=== PATIENT | male | born 1975 | race African-American/Black ===

== ENCOUNTER 2019-02-17 10:17 | Inpatient (IN) | payer SELFPAY ==
[~2019-02-17] VITALS: Ht 188 cm; Wt 96.6 kg
--- NOTE | 2019-02-17 10:33 | NUR ---
ED Nurse Note: Pt ambulated to ED from home. Pt A&Ox4, VSS. C/o right-sided flank pain 8/10 for 3 weeks and boils in the groin area. Pt denies medical hx.
--- NOTE | 2019-02-17 10:35 | Emergency Room Report ---
History of Present Illness General Chief Complaint: Abdominal Pain Source: Patient Present Illness HPI Patient present with complaints of left lower back pain initially report is mentioning flank however the patient points fairly clearly to the left posterior superior iliac crest region for the pain Off-and-on for the past 2 weeks denies any chest pain or short of breath Patient also complains of a rash in the inguinal area Complains of increased nausea vomiting worsen with the pain Patient reports that he does a lot of sitting at work Doesn't recall the specifics of when the initial pain started Denies any obvious trauma Allergies: Coded Allergies: No Known Allergies (Unverified , 02/17/19) Patient History Past Medical History: see triage record Pertinent Family History: none Reviewed Nursing Documentation: PMH: Agreed; PSxH: Agreed Nursing Documentation-PMH Past Medical History: No Stated History Review of Systems All Other Systems: negative except mentioned in HPI Physical Exam Vital Signs Date Time Temp Pulse Resp B/P (MAP) Pulse Ox O2 Delivery O2 Flow Rate FiO2 02/17/19 10:22 97.9 91 18 96 Room Air Sp02 EP Interpretation: reviewed, normal General Appearance: well appearing, no apparent distress Head: normocephalic, atraumatic Eyes: bilateral eye PERRL, bilateral eye EOMI ENT: hearing grossly normal, normal pharynx Neck: supple Respiratory: lungs clear, no retraction, no accessory muscle use Cardiovascular #1: regular rate, rhythm Gastrointestinal: non tender, soft Genitourinary: other - Evaluation of the perineal area reveals multiple areas of folliculitis involving the inguinal region, several areas and blister formations that appeared to also involve the penile shaft, there are several old healed scarred areas in the perineal area as well and patient reports that he has had these ever since he has been child Musculoskeletal: other - Uncomfortable on palpation of the left posterior superior iliac crest region on palpation, no midline step-off and the L-spine sensory intact moving all extremities equally Neurologic: alert, oriented x3, responsive Skin: other - As above with evidence of what appears to be likely superlative hidradenitis in the inguinal region, there is also concern for possible STD given the lesions involving the penile shaft Lymphatic: no adenopathy Medical Decision Making Diagnostic Impression: Primary Impression: Diabetes Additional Impression: Cellulitis ER Course Given the patient's presentation initial baseline blood work are initiated With the initial workup glucose level returns at 600 Patient does not have any previous history of diabetes and this appears to be a new onset patient's sodium and chloride also low however does not appear acidotic CT imaging does not reveal any obvious abscesses patient is provided with broad-spectrum antibiotics and requires further inpatient care Labs Test 02/17/19 10:45 White Blood Count 8.3 K/UL (4.8-10.8) Red Blood Count 4.59 M/UL (4.70-6.10) Hemoglobin 14.0 G/DL (14.2-18.0) Hematocrit 41.5 % (42.0-52.0) Mean Corpuscular Volume 90 FL (80-99) Mean Corpuscular Hemoglobin 30.4 PG (27.0-31.0) Mean Corpuscular Hemoglobin Concent 33.7 G/DL (32.0-36.0) Red Cell Distribution Width 11.8 % (11.6-14.8) Platelet Count 250 K/UL (150-450) Mean Platelet Volume 7.7 FL (6.5-10.1) Neutrophils (%) (Auto) 60.0 % (45.0-75.0) Lymphocytes (%) (Auto) 30.8 % (20.0-45.0) Monocytes (%) (Auto) 7.1 % (1.0-10.0) Eosinophils (%) (Auto) 0.8 % (0.0-3.0) Basophils (%) (Auto) 1.4 % (0.0-2.0) Urine Color Pale yellow Urine Appearance Clear Urine pH 5 (4.5-8.0) Urine Specific [place] 1.010 (1.005-1.035) Urine Protein Negative (NEGATIVE) Urine Glucose (UA) 4+ (NEGATIVE) Urine Ketones 4+ (NEGATIVE) Urine Blood 1+ (NEGATIVE) Urine Nitrite Negative (NEGATIVE) Urine Bilirubin Negative (NEGATIVE) Urine Urobilinogen Normal MG/DL (0.0-1.0) Urine Leukocyte Esterase Negative (NEGATIVE) Urine RBC 0-2 /HPF (0 - 0) Urine WBC 0 /HPF (0 - 0) Urine Squamous Epithelial Cells Occasional /LPF Urine Bacteria None /HPF (NONE) Urine Trichomonas /HPF (NONE) Sodium Level 126 MMOL/L (136-145) Potassium Level 3.7 MMOL/L (3.5-5.1) Chloride Level 89 MMOL/L (98-107) Carbon Dioxide Level 23 MMOL/L (21-32) Anion Gap 14 mmol/L (5-15) Blood Urea Nitrogen 15 mg/dL (7-18) Creatinine 1.1 MG/DL (0.55-1.30) Estimat Glomerular Filtration Rate > 60 mL/min (>60) Glucose Level 606 MG/DL (74-106) Calcium Level 8.9 MG/DL (8.5-10.1) Urine Opiates Screen Negative (NEGATIVE) Urine Barbiturates Screen Negative (NEGATIVE) Phencyclidine (PCP) Screen Negative (NEGATIVE) Urine Amphetamines Screen Negative (NEGATIVE) Urine Benzodiazepines Screen Negative (NEGATIVE) Urine Cocaine Screen Negative (NEGATIVE) Urine Marijuana (THC) Screen Positive (NEGATIVE) Rhythm Strip Diag. Results EP Interpretation: yes Rate: 80 Rhythm: NSR, no PVC's, no ectopy CT/MRI/US Diagnostic Results CT/MRI/US Diagnostic Results : Impression CT abdomen pelvis: Question will changes in the pancreatic region no other abscess Last Vital Signs Date Time Temp Pulse Resp B/P (MAP) Pulse Ox O2 Delivery O2 Flow Rate FiO2 02/17/19 10:22 97.9 91 18 96 Room Air Status: improved Disposition: ADMITTED INPATIENT Condition: Serious Twin Lewis DO February 17, 2019 10:35
[2019-02-17 10:45] VITALS: BP 141/90
[2019-02-17] MEDS ORDERED: Ketorolac 60mg Inj IM ONE (10:45)
[2019-02-17] MEDS ORDERED: Methocarbamol 750mg tab ORAL ONE (10:45)
[2019-02-17 11:02] LABS: BASOPHILS % (AUTO) 1.4 % (0.0-2.0); EOSINOPHILS % (AUTO) 0.8 % (0.0-3.0); HEMATOCRIT 41.5 % (42.0-52.0); LYMPHOCYTES % (AUTO) 30.8 % (20.0-45.0); MEAN CORPUSCULAR VOLUME 90 FL (80-99); MONOCYTES % (AUTO) 7.1 % (1.0-10.0); PLATELET COUNT 250 K/UL (150-450); RED BLOOD COUNT 4.59 M/UL (4.70-6.10); RED CELL DISTRIBUTION WIDTH 11.8 % (11.6-14.8); WHITE BLOOD COUNT 8.3 K/UL (4.8-10.8)
[2019-02-17 11:03] LABS: APPEARANCE,URINE CLEAR; BILIRUBIN, URINE NEGATIVE (NEGATIVE); COLOR,URINE PALE YELLOW; GLUCOSE, URINE (UA) 4+ (NEGATIVE); KETONES,URINE 4+ (NEGATIVE); LEUKOCYTE ESTERASE ,URINE NEGATIVE (NEGATIVE); NITRITE,URINE NEGATIVE (NEGATIVE); PH,URINE 5 (4.5-8.0); PROTEIN,URINE NEGATIVE (NEGATIVE); UROBILINOGEN,URINE NORMAL MG/DL (0.0-1.0)
[2019-02-17 11:14] LABS: ANION GAP 14 mmol/L (5-15); BLOOD UREA NITROGEN 15 mg/dL (7-18); CALCIUM 8.9 MG/DL (8.5-10.1); CARBON DIOXIDE 23 MMOL/L (21-32); CHLORIDE 89 MMOL/L (98-107); CREATININE 1.1 MG/DL (0.55-1.30); POTASSIUM 3.7 MMOL/L (3.5-5.1); SODIUM 126 MMOL/L (136-145)
[2019-02-17] MEDS ORDERED: Isovue-300 100ml vial INJ PRN (11:30)
[2019-02-17] MEDS ORDERED: Piperacillin/Tazobactam 3.375 GM in NS 110 ML IVPB ONE (11:30)
[2019-02-17] MEDS ORDERED: Vancomycin 1.5gm Premix 275 ML IVPB SCH (11:30)
--- NOTE | 2019-02-17 12:25 | NUR ---
ED Nurse Note: RN returned Vancomycin 1.5g vial to pharmacy.
[2019-02-17] MEDS ORDERED: Vancomycin 1.5gm vial IVPB ONE (12:27)
[2019-02-17 12:39] VITALS: BP 127/84
--- NOTE | 2019-02-17 12:39 | NUR ---
ED Nurse Note: Sister at bedside. Patient resting in bed without facial grimacing or guarding noted.
[2019-02-17] MEDS ORDERED: Insulin Human Regular 100units/ml 3ml SUBQ ONE (13:00)
--- NOTE | 2019-02-17 13:11 | NUR ---
ED Nurse Note: Attempted to give report, instructed to recheck pt's BS before being brought up, BS needs to be under [address] Brady. Will recheck in 20 mins
--- NOTE | 2019-02-17 14:07 | NUR ---
TRANSFER TO FLOOR: Patient transferred to Med surg 320-1 as ordered, per DR Lewis . Report given to [Nagin]. Belongings and medications given to [pt]. Family and or S/O informed of transfer.
--- NOTE | 2019-02-17 14:10 | NUR ---
NURSE NOTES: Received patient from ER in [facility]. Patient is alert and oriented x4. Not in respiratory/cardiac distress. Complains of mild left sided flank pain. Medical history obtained from the patient, patient denies any hx or surgery in the past. No home meds. Orientation given about the unit, meal time, toilet use and plan of care , call light use, fall precaution, etc. Bed is in lowest position and locked. Patient states that he lost weight and noted with boils on peroneal area. paged Dr. Brady for admission order awaiting for return call. Will continue to monitor. V/S stable and blood sugar is 332mg/dl.
--- NOTE | 2019-02-17 14:11 | NUR ---
NURSE NOTES: Patient has skinner of $322.00 with him and refused to put in [facility] safe. He will send money home when his sister comes tomorrow.
[2019-02-17 14:20] VITALS: BP 114/77
--- NOTE | 2019-02-17 14:49 | History & Physical ---
History and Physical History & Physicial Admission History and Physical HPI Patient is a 43 year old man who present with complaints of left lower back pain initially report is mentioning flank however the patient points fairly clearly to the left posterior superior iliac crest region for the pain Off-and-on for the past 2 weeks denies any chest pain or short of breath Patient also complains of a rash in the inguinal area Complains of increased nausea vomiting worsen with the pain Denies any previous trauma Allergies: No Known Allergies Past Medical History: No Stated History All Other Systems: negative except mentioned in HPI Physical Exam Vital Signs Noted Date Time Temp Pulse Resp B/P (MAP) Pulse Ox O2 Delivery O2 Flow Rate FiO2 02/17/19 10:22 97.9 91 18 96 Room Air General Appearance: well appearing, no apparent distress Head: normocephalic, atraumatic Eyes: bilateral eye PERRL, bilateral eye EOMI ENT: hearing grossly normal, normal pharynx Neck: supple Respiratory: lungs clear, no retraction, no accessory muscle use Cardiovascular: HS1, HS2, regular rate, rhythm Gastrointestinal: non tender, soft Genitourinary: other - Evaluation of the perineal area reveals multiple areas of folliculitis involving the inguinal region, several areas and blister formations that appeared to also involve the penile shaft, there are several old healed scarred areas in the perineal area as well and patient reports that he has had these ever since he has been child Musculoskeletal: other - Uncomfortable on palpation of the left posterior superior iliac crest region on palpation, no midline step-off and the L-spine sensory intact moving all extremities equally Neurologic: alert, oriented x3, responsive Skin: other - As above with evidence of what appears to be likely superlative hidradenitis in the inguinal region, there is also concern for possible STD given the lesions involving the penile shaft Lymphatic: no adenopathy Impression: New Onset Diabetes Groin Cellulitis- Hyaladenitis Suppurativa - Surgery Consulted Hyponatremia Plan IV Antibiotics: Zosyn and vancomycin IVF ISS Lantus PPX [employer] Medications Pain Meds PRN Nausea Meds CXR EKG 1800 ADA UA Labs Test 02/17/19 10:45 White Blood Count 8.3 K/UL (4.8-10.8) Red Blood Count 4.59 M/UL (4.70-6.10) Hemoglobin 14.0 G/DL (14.2-18.0) Hematocrit 41.5 % (42.0-52.0) Mean Corpuscular Volume 90 FL (80-99) Mean Corpuscular Hemoglobin 30.4 PG (27.0-31.0) Mean Corpuscular Hemoglobin Concent 33.7 G/DL (32.0-36.0) Red Cell Distribution Width 11.8 % (11.6-14.8) Platelet Count 250 K/UL (150-450) Mean Platelet Volume 7.7 FL (6.5-10.1) Neutrophils (%) (Auto) 60.0 % (45.0-75.0) Lymphocytes (%) (Auto) 30.8 % (20.0-45.0) Monocytes (%) (Auto) 7.1 % (1.0-10.0) Eosinophils (%) (Auto) 0.8 % (0.0-3.0) Basophils (%) (Auto) 1.4 % (0.0-2.0) Urine Color Pale yellow Urine Appearance Clear Urine pH 5 (4.5-8.0) Urine Specific [place] 1.010 (1.005-1.035) Urine Protein Negative (NEGATIVE) Urine Glucose (UA) 4+ (NEGATIVE) Urine Ketones 4+ (NEGATIVE) Urine Blood 1+ (NEGATIVE) Urine Nitrite Negative (NEGATIVE) Urine Bilirubin Negative (NEGATIVE) Urine Urobilinogen Normal MG/DL (0.0-1.0) Urine Leukocyte Esterase Negative (NEGATIVE) Urine RBC 0-2 /HPF (0 - 0) Urine WBC 0 /HPF (0 - 0) Urine Squamous Epithelial Cells Occasional /LPF Urine Bacteria None /HPF (NONE) Urine Trichomonas /HPF (NONE) Sodium Level 126 MMOL/L (136-145) Potassium Level 3.7 MMOL/L (3.5-5.1) Chloride Level 89 MMOL/L (98-107) Carbon Dioxide Level 23 MMOL/L (21-32) Anion Gap 14 mmol/L (5-15) Blood Urea Nitrogen 15 mg/dL (7-18) Creatinine 1.1 MG/DL (0.55-1.30) Estimat Glomerular Filtration Rate > 60 mL/min (>60) Glucose Level 606 MG/DL (74-106) Calcium Level 8.9 MG/DL (8.5-10.1) Urine Opiates Screen Negative (NEGATIVE) Urine Barbiturates Screen Negative (NEGATIVE) Phencyclidine (PCP) Screen Negative (NEGATIVE) Urine Amphetamines Screen Negative (NEGATIVE) Urine Benzodiazepines Screen Negative (NEGATIVE) Urine Cocaine Screen Negative (NEGATIVE) Urine Marijuana (THC) Screen Positive (NEGATIVE) EKG Interpretation: yes Rate: 80 Rhythm: NSR, no PVC's, no ectopy CT : CT abdomen pelvis: Question will changes in the pancreatic region no other abscess Peterson An MD February 17, 2019 14:49
[2019-02-17] MEDS ORDERED: Morphine Sulfate 2mg/ml Inj(IV/IM USE ONLY) IVP PRN (15:15)
--- NOTE | 2019-02-17 15:17 | NUR ---
NURSE NOTES: Received orders from Dr. An who is covering for Dr. Brady. All orders read back and verified. Dr. An is aware of sodium of 126 and elevated blood sugar.
[2019-02-17] MEDS ORDERED: NovoLOG Insulin Flexpen SUBQ SCH (15:30)
[2019-02-17] MEDS ORDERED: Levemir Flexpen SUBQ SCH ×2 (15:45→21:00)
--- NOTE | 2019-02-17 15:50 | NUR ---
NURSE NOTES: Patient complains of severe pain on left sided flank with facial grimacing, restlessness, and moaning asking for pain medication. Given morphine 1mg IVP and wasted 1mg witnessed by another RN. Rn diluted morphine in NS and given slowly. Patient is no known drug allergy. Patient made aware of possible side effect.Will continue to monitor.
--- NOTE | 2019-02-17 15:54 | Consultation ---
History of Present Illness General Date patient seen: February 17, 2019 Reason for Hospitalization: Abdominal Pain Present Illness HPI This is a 43-year-old male who presented to the emergency room at [facility] complaining of worsening left-sided flank pain and groin rash/ discomfort. Patient states that the left-sided pain has been ongoing for some time now approximately near 2 weeks and worsening. Associated nausea and states he has had emesis recently. States that he has had a groin rash for years and notices drainage intermittently spontaneously. On admission identified to have uncontrolled glucose levels/new onset diabetes. Surgery called to evaluate cellulitis of the groin region. Patient seen, patient evaluated, chart reviewed. Allergies: Coded Allergies: No Known Allergies (Unverified , 02/17/19) Patient History History Provided By: Patient, Medical Record, PMD Healthcare decision maker Resuscitation status Advanced Directive on File Past Medical/Surgical History Past Medical/Surgical History: (1) Cellulitis (2) Diabetes Review of Systems Review of Symptoms General ROS: no weight loss or fever Psychological ROS: no depression or mood changes, no memory loss Ophthalmic ROS: no visual changes or eye irritation ENT ROS: no nasal congestion, hearing loss, dizziness Allergy and Immunology ROS: no allergic symptoms or urticaria Hematological and Lymphatic ROS: no swollen glands, unusual bleeding or bruising Endocrine ROS: no polyuria, polydipsia, weight changes, temperature intolerance Respiratory ROS: no cough, shortness of breath, or wheezing Cardiovascular ROS: no chest pain or dyspnea on exertion Gastrointestinal ROS: denies abdominal pain, no bright red blood in stool. Musculoskeletal ROS: no myalgias or arthralgias Neurological ROS: no TIA or stroke symptoms Dermatological ROS: no new or changing skin lesions, rashes or pruritis Physical Exam Physical Exam General appearance: alert, cooperative, no distress, appears stated age Head: Normocephalic, without obvious abnormality, atraumatic Eyes: conjunctivae/corneas clear. PERRL, EOM's intact. Fundi benign Throat: Lips, mucosa, and tongue normal. Teeth and gums normal Neck: supple, symmetrical, trachea midline, no adenopathy, thyroid: not enlarged, symmetric, no tenderness/mass/nodules, no carotid bruit and no JVD Lungs: clear to auscultation bilaterally Heart: regular rate and rhythm, S1, S2 normal, no murmur, click, rub or gallop Abdomen: soft, non-tender. Bowel sounds normal. No masses, no organomegaly Extremities: extremities normal, atraumatic, no cyanosis or edema Pulses: 2+ and symmetric Skin: Skin color, texture, turgor normal. No rashes or lesions Neurologic: Grossly normal Last 24 Hour Vital Signs Date Time Temp Pulse Resp B/P (MAP) Pulse Ox O2 Delivery O2 Flow Rate FiO2 02/17/19 14:07 97.9 91 18 145/80 Room Air 02/17/19 12:39 98.4 70 19 127/84 99 Room Air 02/17/19 10:45 91 18 Room Air 02/17/19 10:45 97.9 91 18 141/90 96 Room Air 02/17/19 10:22 97.9 91 18 96 Room Air Laboratory Tests Test 02/17/19 10:45 White Blood Count 8.3 K/UL (4.8-10.8) Red Blood Count 4.59 M/UL (4.70-6.10) L Hemoglobin 14.0 G/DL (14.2-18.0) L Hematocrit 41.5 % (42.0-52.0) L Mean Corpuscular Volume 90 FL (80-99) Mean Corpuscular Hemoglobin 30.4 PG (27.0-31.0) Mean Corpuscular Hemoglobin Concent 33.7 G/DL (32.0-36.0) Red Cell Distribution Width 11.8 % (11.6-14.8) Platelet Count 250 K/UL (150-450) Mean Platelet Volume 7.7 FL (6.5-10.1) Neutrophils (%) (Auto) 60.0 % (45.0-75.0) Lymphocytes (%) (Auto) 30.8 % (20.0-45.0) Monocytes (%) (Auto) 7.1 % (1.0-10.0) Eosinophils (%) (Auto) 0.8 % (0.0-3.0) Basophils (%) (Auto) 1.4 % (0.0-2.0) Urine Color Pale yellow Urine Appearance Clear Urine pH 5 (4.5-8.0) Urine Specific [place] 1.010 (1.005-1.035) Urine Protein Negative (NEGATIVE) Urine Glucose (UA) 4+ (NEGATIVE) H Urine Ketones 4+ (NEGATIVE) H Urine Blood 1+ (NEGATIVE) H Urine Nitrite Negative (NEGATIVE) Urine Bilirubin Negative (NEGATIVE) Urine Urobilinogen Normal MG/DL (0.0-1.0) Urine Leukocyte Esterase Negative (NEGATIVE) Urine RBC 0-2 /HPF (0 - 0) H Urine WBC 0 /HPF (0 - 0) Urine Squamous Epithelial Cells Occasional /LPF Urine Bacteria None /HPF (NONE) Urine Trichomonas /HPF (NONE) Sodium Level 126 MMOL/L (136-145) L Potassium Level 3.7 MMOL/L (3.5-5.1) Chloride Level 89 MMOL/L (98-107) L Carbon Dioxide Level 23 MMOL/L (21-32) Anion Gap 14 mmol/L (5-15) Blood Urea Nitrogen 15 mg/dL (7-18) Creatinine 1.1 MG/DL (0.55-1.30) Estimat Glomerular Filtration Rate > 60 mL/min (>60) Glucose Level 606 MG/DL (74-106) *H Calcium Level 8.9 MG/DL (8.5-10.1) Urine Opiates Screen Negative (NEGATIVE) Urine Barbiturates Screen Negative (NEGATIVE) Phencyclidine (PCP) Screen Negative (NEGATIVE) Urine Amphetamines Screen Negative (NEGATIVE) Urine Benzodiazepines Screen Negative (NEGATIVE) Urine Cocaine Screen Negative (NEGATIVE) Urine Marijuana (THC) Screen Positive (NEGATIVE) H Height (Feet): 6 Height (Inches): 2.00 Weight (Pounds): 219 Medications Current Medications Medications (Trade) Dose Ordered Sig/Homa Route PRN Reason Start Time Stop Time Status Last Admin Dose Admin Acetaminophen (Tylenol) 650 mg Q4H PRN ORAL Mild Pain/Temp > 100.5 02/17/19 15:15 03/19/19 15:14 Dextrose (Dextrose 50%) 25 ml Q30M PRN IV Hypoglycemia 02/17/19 15:15 03/19/19 15:14 Dextrose (Dextrose 50%) 50 ml Q30M PRN IV Hypoglycemia 02/17/19 15:15 03/19/19 15:14 Diphenhydramine HCl (Benadryl) 25 mg Q6H PRN ORAL Itching 02/17/19 15:15 03/19/19 15:14 Heparin Sodium (Porcine) (Heparin 5000 units/ml) 5,000 units EVERY 12 HOURS SUBQ 02/17/19 21:00 03/19/19 20:59 Insulin Aspart (NovoLOG) BEFORE MEALS AND HS SUBQ 02/17/19 16:30 03/19/19 16:29 Insulin Aspart (NovoLOG) 10 units ONCE SUBQ 02/17/19 15:30 02/17/19 16:30 Insulin Detemir (Levemir) 20 units Q12HR SUBQ 02/17/19 15:45 03/19/19 15:44 Iopamidol (Isovue-300 100ml) 100 ml NOW PRN INJ Radiology Procedure 02/17/19 11:30 Morphine Sulfate (Morphine Sulfate) 1 mg Q3H PRN IVP Severe Pain (Pain Scale 7-10) 02/17/19 15:15 02/24/19 15:14 Ondansetron HCl (Zofran) 4 mg Q8H PRN IVP Nausea & Vomiting 02/17/19 15:15 03/19/19 15:14 Piperacillin Sod/ Tazobactam Sod 3.375 gm/Sodium Chloride 110 ml @ 27.5 mls/hr Q8HR IVPB 02/17/19 22:00 02/24/19 21:59 Sodium Chloride 1,000 ml @ 125 mls/hr Q8H IV 02/17/19 17:15 03/19/19 17:14 Sodium Chloride 1,000 ml @ 250 mls/hr Q4H IV 02/17/19 15:15 02/17/19 19:14 Vancomycin HCl (Vanco rx to dose) 1 ea DAILY PRN MISC Per rx protocol 02/17/19 15:15 03/19/19 15:14 Vancomycin HCl/ Dextrose 275 ml @ 137.5 mls/ hr Q12H IVPB 02/17/19 23:00 02/22/19 22:59 Assessment/Plan Problem List: (1) Hidradenitis suppurativa ICD Codes: L73.2 - Hidradenitis suppurativa SNOMED: 72307842 (2) Cellulitis Assessment & Plan: This is a 43-year-old male with new onset uncontrolled diabetes, left flank pain mainly at the superior iliac crest, groin cellulitis. Patient identified on examination to have hidradenitis in the groin region with multiple wounds some active some chronic. No acute surgical intervention necessary okay for diet DM control IV abx AM labs dressings to groin abscess prn but mainly cellulitis okay to shower will follow with recs. ICD Codes: L03.90 - Cellulitis, unspecified SNOMED: 130240168 (3) Diabetes ICD Codes: E11.9 - Type 2 diabetes mellitus without complications SNOMED: 89944405 [place] [address] February 17, 2019 15:54
[2019-02-17 16:00] VITALS: BP 109/72
[2019-02-17] MEDS: NovoLOG Insulin Flexpen SUBQ SCH ×2 (17:00→20:58)
[2019-02-17] MEDS: Levemir Flexpen SUBQ SCH (17:01)
--- NOTE | 2019-02-17 17:10 | NUR ---
NURSE NOTES: Patient's blood sugar is 350mg/dl. Given insulin as ordered and educated patient on hypoglycemia and hyperglycemia.
[2019-02-17] MEDS ORDERED: HYDROcodone/Acetamin 5/325 tab ORAL PRN (17:45)
--- NOTE | 2019-02-17 19:30 | NUR ---
NURSE NOTES: Received report from Honey Still RN. Patient resting in bed, bed locked, in low position, side rails up x2, call light within reach. IV site intact and patent. Will continue to monitor.
--- NOTE | 2019-02-17 19:30 | NUR ---
HAND-OFF: Report given to Viry and endorsed to monitor blood sugar closely.
[2019-02-17 20:00] VITALS: BP 129/99
[2019-02-17] MEDS: Morphine Sulfate 2mg/ml Inj(IV/IM USE ONLY) IVP PRN ×2 (20:30→23:23)
[2019-02-17] MEDS: Heparin 5000 units/ml inj SUBQ SCH (20:35)
[2019-02-17 21:54] VITALS: BP 139/90
[2019-02-17] MEDS: Piperacillin/Tazobactam 3.375 GM in NS 110 ML IVPB SCH (22:24)
[2019-02-17] MEDS: Vancomycin 1.5gm Premix q24h IVPB SCH (23:23)
[2019-02-18] VITALS: BP 125/85
--- NOTE | 2019-02-18 02:00 | NUR ---
NURSE NOTES: Patient sleeping quietly. IV infusing well. Will continue to monitor
[2019-02-18 04:00] VITALS: BP 120/75
[2019-02-18] MEDS: Morphine Sulfate 2mg/ml Inj(IV/IM USE ONLY) IVP PRN ×4 (06:06→21:09)
[2019-02-18] MEDS: Piperacillin/Tazobactam 3.375 GM in NS 110 ML IVPB SCH ×3 (06:07→20:57)
[2019-02-18] MEDS: NovoLOG Insulin Flexpen SUBQ SCH ×4 (06:43→21:01)
[2019-02-18 06:56] LABS: BASOPHILS % (AUTO) 1.7 % (0.0-2.0); EOSINOPHILS % (AUTO) 2.2 % (0.0-3.0); HEMATOCRIT 34.2 % (42.0-52.0); LYMPHOCYTES % (AUTO) 43.4 % (20.0-45.0); MEAN CORPUSCULAR VOLUME 89 FL (80-99); MONOCYTES % (AUTO) 6.9 % (1.0-10.0); NEUTROPHILS % (AUTO) 45.9 % (45.0-75.0); PLATELET COUNT 195 K/UL (150-450); RED BLOOD COUNT 3.84 M/UL (4.70-6.10); RED CELL DISTRIBUTION WIDTH 11.5 % (11.6-14.8); WHITE BLOOD COUNT 6.6 K/UL (4.8-10.8)
[2019-02-18 06:58] LABS: ANION GAP 8 mmol/L (5-15); BLOOD UREA NITROGEN 12 mg/dL (7-18); CALCIUM 8.5 MG/DL (8.5-10.1); CARBON DIOXIDE 28 MMOL/L (21-32); CHLORIDE 101 MMOL/L (98-107); CREATININE 0.9 MG/DL (0.55-1.30); PHOSPHORUS 3.4 MG/DL (2.5-4.9); POTASSIUM 3.3 MMOL/L (3.5-5.1); SODIUM 137 MMOL/L (136-145)
[2019-02-18 07:30] VITALS: BP 120/77
--- NOTE | 2019-02-18 07:30 | NUR ---
HAND-OFF: Report given to CAT Archibald. Breakfast tray set up. Patient in stable condition.
--- NOTE | 2019-02-18 07:35 | NUR ---
NURSE NOTES: Report received from Viry SHELTON, rounds made. Patient resting in semi-fowlers position in bed. Patient alert, oriented x4, calm. IV Zosyn infusing via LAC, site asymptomatic. Denies pain, SOB on RA, NV at this time. Call light in reach, bed in lowest position, will continue to monitor.
[2019-02-18] MEDS ORDERED: Tubing IV Secondary IV ONE (08:53)
--- NOTE | 2019-02-18 09:15 | Diagnostic Imaging Report ---
EXAM: XR Chest, 1 View CLINICAL HISTORY: SCREEN TECHNIQUE: Frontal view of the chest. COMPARISON: No relevant prior studies available. FINDINGS: Lungs: Unremarkable. The lungs appear clear. No focal consolidation. Pleural space: Unremarkable. The costophrenic angles are sharp. No visible pneumothorax. Heart: Cardiac silhouette appears mildly enlarged, however may be magnified by the portable technique. Mediastinum: Unremarkable. Bones/joints: Unremarkable. IMPRESSION: No acute findings.
[2019-02-18] MEDS: Heparin 5000 units/ml inj SUBQ SCH ×2 (09:40→21:02)
[2019-02-18] MEDS: Levemir Flexpen SUBQ SCH ×2 (09:41→21:01)
--- NOTE | 2019-02-18 10:26 | Pulmonology Progress Note ---
Assessment/Plan Assessment/Plan Pulmonary Progress Note HPI Patient is a 43 year old man who present with complaints of left lower back pain initially report is mentioning flank however the patient points fairly clearly to the left posterior superior iliac crest region for the pain Off-and-on for the past 2 weeks denies any chest pain or short of breath Pain in Groin area improving, no vomitting, Anion Gap has improved Denies any previous trauma Allergies: No Known Allergies Past Medical History: No Stated History All Other Systems: negative except mentioned in HPI Physical Exam Vital Signs Noted Date Time Temp Pulse Resp B/P (MAP) Pulse Ox O2 Delivery O2 Flow Rate FiO2 02/17/19 10:22 97.9 91 18 96 Room Air General Appearance: well appearing, no apparent distress Head: normocephalic, atraumatic Eyes: bilateral eye PERRL, bilateral eye EOMI ENT: hearing grossly normal, normal pharynx Neck: supple Respiratory: lungs clear, no retraction, no accessory muscle use Cardiovascular: HS1, HS2, regular rate, rhythm Gastrointestinal: non tender, soft Genitourinary: other - Evaluation of the perineal area reveals multiple areas of folliculitis involving the inguinal region, several areas and blister formations that appeared to also involve the penile shaft, there are several old healed scarred areas in the perineal area as well and patient reports that he has had these ever since he has been child Musculoskeletal: other - Uncomfortable on palpation of the left posterior superior iliac crest region on palpation, no midline step-off and the L-spine sensory intact moving all extremities equally Neurologic: alert, oriented x3, responsive Skin: other - As above with evidence of what appears to be likely superlative hidradenitis in the inguinal region, there is also concern for possible STD given the lesions involving the penile shaft Lymphatic: no adenopathy Impression: New Onset Diabetes Groin Cellulitis- Hyadenitis Suppurativa - Surgery Consult Appreciated - no current surgery indicated Hyponatremia - improved Plan IV Antibiotics: Zosyn and vancomycin IVF ISS Lantus PPX ROLLER [place]URNER Medications Pain Meds PRN Nausea Meds CXR EKG 1800 ADA UA Labs Test 02/17/19 10:45 White Blood Count 8.3 K/UL (4.8-10.8) Red Blood Count 4.59 M/UL (4.70-6.10) Hemoglobin 14.0 G/DL (14.2-18.0) Hematocrit 41.5 % (42.0-52.0) Mean Corpuscular Volume 90 FL (80-99) Mean Corpuscular Hemoglobin 30.4 PG (27.0-31.0) Mean Corpuscular Hemoglobin Concent 33.7 G/DL (32.0-36.0) Red Cell Distribution Width 11.8 % (11.6-14.8) Platelet Count 250 K/UL (150-450) Mean Platelet Volume 7.7 FL (6.5-10.1) Neutrophils (%) (Auto) 60.0 % (45.0-75.0) Lymphocytes (%) (Auto) 30.8 % (20.0-45.0) Monocytes (%) (Auto) 7.1 % (1.0-10.0) Eosinophils (%) (Auto) 0.8 % (0.0-3.0) Basophils (%) (Auto) 1.4 % (0.0-2.0) Urine Color Pale yellow Urine Appearance Clear Urine pH 5 (4.5-8.0) Urine Specific [place] 1.010 (1.005-1.035) Urine Protein Negative (NEGATIVE) Urine Glucose (UA) 4+ (NEGATIVE) Urine Ketones 4+ (NEGATIVE) Urine Blood 1+ (NEGATIVE) Urine Nitrite Negative (NEGATIVE) Urine Bilirubin Negative (NEGATIVE) Urine Urobilinogen Normal MG/DL (0.0-1.0) Urine Leukocyte Esterase Negative (NEGATIVE) Urine RBC 0-2 /HPF (0 - 0) Urine WBC 0 /HPF (0 - 0) Urine Squamous Epithelial Cells Occasional /LPF Urine Bacteria None /HPF (NONE) Urine Trichomonas /HPF (NONE) Sodium Level 126 MMOL/L (136-145) Potassium Level 3.7 MMOL/L (3.5-5.1) Chloride Level 89 MMOL/L (98-107) Carbon Dioxide Level 23 MMOL/L (21-32) Anion Gap 14 mmol/L (5-15) Blood Urea Nitrogen 15 mg/dL (7-18) Creatinine 1.1 MG/DL (0.55-1.30) Estimat Glomerular Filtration Rate > 60 mL/min (>60) Glucose Level 606 MG/DL (74-106) Calcium Level 8.9 MG/DL (8.5-10.1) Urine Opiates Screen Negative (NEGATIVE) Urine Barbiturates Screen Negative (NEGATIVE) Phencyclidine (PCP) Screen Negative (NEGATIVE) Urine Amphetamines Screen Negative (NEGATIVE) Urine Benzodiazepines Screen Negative (NEGATIVE) Urine Cocaine Screen Negative (NEGATIVE) Urine Marijuana (THC) Screen Positive (NEGATIVE) EKG Interpretation: yes Rate: 80 Rhythm: NSR, no PVC's, no ectopy CT : CT abdomen pelvis: Question will changes in the pancreatic region no other abscess Subjective ROS Limited/Unobtainable: No Allergies: Coded Allergies: No Known Allergies (Unverified , 02/17/19) Objective Last 24 Hour Vital Signs Date Time Temp Pulse Resp B/P (MAP) Pulse Ox O2 Delivery O2 Flow Rate FiO2 02/18/19 07:30 97.9 64 19 120/77 (91) 100 02/18/19 04:00 98.1 63 18 120/75 (90) 100 02/18/19 00:00 98.1 66 18 125/85 (98) 99 02/17/19 21:54 67 18 139/90 (106) 02/17/19 21:00 Room Air 02/17/19 20:00 98.1 73 18 129/99 (109) 99 02/17/19 16:00 98.2 70 21 109/72 (84) 99 02/17/19 14:27 Room Air 02/17/19 14:20 98.2 72 21 114/77 (89) 99 02/17/19 14:07 97.9 91 18 145/80 Room Air 02/17/19 12:39 98.4 70 19 127/84 99 Room Air 02/17/19 10:45 91 18 Room Air 02/17/19 10:45 97.9 91 18 141/90 96 Room Air Intake and Output 02/17/19 02/18/19 19:00 07:00 Intake Total 2135 ml 1175 ml Balance 2135 ml 1175 ml Intake Oral 400 ml 300 ml IV Total 1735 ml 875 ml # Voids 3 1 Laboratory Tests 02/17/19 10:45: White Blood Count 8.3, Red Blood Count 4.59L, Hemoglobin 14.0L, Hematocrit 41.5L , Mean Corpuscular Volume 90, Mean Corpuscular Hemoglobin 30.4, Mean Corpuscular Hemoglobin Concent 33.7, Red Cell Distribution Width 11.8, Platelet Count 250, Mean Platelet Volume 7.7, Neutrophils (%) (Auto) 60.0, Lymphocytes (% ) (Auto) 30.8, Monocytes (%) (Auto) 7.1, Eosinophils (%) (Auto) 0.8, Basophils ( %) (Auto) 1.4, Urine Color Pale yellow, Urine Appearance Clear, Urine pH 5, Urine Specific [place] 1.010, Urine Protein Negative, Urine Glucose (UA) 4+H, Urine Ketones 4+H, Urine Blood 1+H, Urine Nitrite Negative, Urine Bilirubin Negative, Urine Urobilinogen Normal, Urine Leukocyte Esterase Negative, Urine RBC 0-2H, Urine WBC 0, Urine Squamous Epithelial Cells Occasional, Urine Bacteria None, Urine Trichomonas , Sodium Level 126L, Potassium Level 3.7, Chloride Level 89L, Carbon Dioxide Level 23, Anion Gap 14, Blood Urea Nitrogen 15, Creatinine 1.1, Estimat Glomerular Filtration Rate > 60, Glucose Level 606*H , Calcium Level 8.9, Urine Opiates Screen Negative, Urine Barbiturates Screen Negative, Phencyclidine (PCP) Screen Negative, Urine Amphetamines Screen Negative, Urine Benzodiazepines Screen Negative, Urine Cocaine Screen Negative, Urine Marijuana (THC) Screen PositiveH 02/18/19 05:38: White Blood Count 6.6, Red Blood Count 3.84L, Hemoglobin 12.0L, Hematocrit 34.2L , Mean Corpuscular Volume 89, Mean Corpuscular Hemoglobin 31.3H, Mean Corpuscular Hemoglobin Concent 35.2, Red Cell Distribution Width 11.5L, Platelet Count 195, Mean Platelet Volume 8.0, Neutrophils (%) (Auto) 45.9, Lymphocytes (%) (Auto) 43.4, Monocytes (%) (Auto) 6.9, Eosinophils (%) (Auto) 2.2, Basophils (%) (Auto) 1.7, Sodium Level 137#, Potassium Level 3.3L, Chloride Level 101, Carbon Dioxide Level 28, Anion Gap 8, Blood Urea Nitrogen 12 , Creatinine 0.9, Estimat Glomerular Filtration Rate > 60, Glucose Level 203#H, Calcium Level 8.5, Hemoglobin A1c 14.0H, Phosphorus Level 3.4, Magnesium Level 1.8 Current Medications Medications (Trade) Dose Ordered Sig/Homa Route PRN Reason Start Time Stop Time Status Last Admin Dose Admin Acetaminophen (Tylenol) 650 mg Q4H PRN ORAL Mild Pain/Temp > 100.5 02/17/19 15:15 03/19/19 15:14 02/17/19 22:37 Acetaminophen/ Hydrocodone Bitart ([place] 5/325) 1 tab Q6H PRN ORAL Moderate Pain (Pain Scale 4-6) 02/17/19 17:45 02/24/19 17:44 02/17/19 18:52 Dextrose (Dextrose 50%) 25 ml Q30M PRN IV Hypoglycemia 02/17/19 15:15 03/19/19 15:14 Dextrose (Dextrose 50%) 50 ml Q30M PRN IV Hypoglycemia 02/17/19 15:15 03/19/19 15:14 Diphenhydramine HCl (Benadryl) 25 mg Q6H PRN ORAL Itching 02/17/19 15:15 03/19/19 15:14 Heparin Sodium (Porcine) (Heparin 5000 units/ml) 5,000 units EVERY 12 HOURS SUBQ 02/17/19 21:00 03/19/19 20:59 02/18/19 09:40 Insulin Aspart (NovoLOG) BEFORE MEALS AND HS SUBQ 02/17/19 16:30 03/19/19 16:29 02/18/19 06:43 Insulin Detemir (Levemir) 20 units Q12HR SUBQ 02/17/19 15:45 03/19/19 15:44 02/18/19 09:41 Iopamidol (Isovue-300 100ml) 100 ml NOW PRN INJ Radiology Procedure 02/17/19 11:30 Morphine Sulfate (Morphine Sulfate) 2 mg Q3H PRN IVP Severe Pain (Pain Scale 7-10) 02/17/19 17:45 02/24/19 17:44 02/18/19 10:06 Ondansetron HCl (Zofran) 4 mg Q8H PRN IVP Nausea & Vomiting 02/17/19 15:15 03/19/19 15:14 Piperacillin Sod/ Tazobactam Sod 3.375 gm/Sodium Chloride 110 ml @ 27.5 mls/hr Q8HR IVPB 02/17/19 22:00 02/24/19 21:59 02/18/19 06:07 Sodium Chloride 1,000 ml @ 125 mls/hr Q8H IV 02/17/19 17:15 03/19/19 17:14 02/17/19 21:20 Vancomycin HCl (Vanco rx to dose) 1 ea DAILY PRN MISC Per rx protocol 02/17/19 15:15 03/19/19 15:14 Vancomycin HCl/ Dextrose 275 ml @ 137.5 mls/ hr Q12H IVPB 02/17/19 23:00 02/22/19 22:59 02/17/19 23:23 Peterson An MD February 18, 2019 10:26
[2019-02-18] MEDS: Vancomycin 1.5gm Premix q24h IVPB SCH (11:54)
[2019-02-18 11:55] VITALS: BP 122/74
--- NOTE | 2019-02-18 12:05 | NUR ---
CASE MANAGEMENT: INITIAL REVIEW 43 YO M PRESENTED TO OUR ED FROM HOME CC: FLANK PAIN PMHx: DENIES SI:NEW ONSET DM. CELLULITIS. T 97.9 HR 91 RR 18 B/P 141/90 SATS 96% ON RA NA 126 CL 89 GLU 606 IS:TORADOL IM X1 ROBAXIN PO X1 NS BOLUS X2 ZOSYN IV X1 VANCO IV X1 PATIENT ADMITTED TO MED/SURG STATUS 02/17/2019 @ 1230 PLAN OF CARE: GLYCEMIC CONTROL AND MONITORING
[2019-02-18 16:00] VITALS: BP 129/87
[2019-02-18] MEDS ORDERED: Bacitracin Oint UD TOPIC PRN (17:15)
--- NOTE | 2019-02-18 17:45 | NUR ---
NURSE NOTES: Dr. Plaza notified that patient c/o bilateral groin itching. Area of concern assessed, raised bilsters, some pus filled, remain intact. Orders received for Bacitracin topical, see order.
--- NOTE | 2019-02-18 18:00 | NUR ---
NURSE NOTES: Patient educated on DM, s/s of hypo-hyperglycemia, parameters, actions to take if blood sugar is too low (if less than 70 mg/dl, drink 4 oz of juice and recheck 15 mins later), keeping a log of blood sugar results, reading food labels, keeping hydrated with water, reportable s/s, daily foot care (never walk barefoot), site rotation with blood sugar checks and insulin administration injections. Patient needs further teaching and written material to review and refer to. Will endorse to next shift to continue educating/reinforcing DM teaching with patient.
--- NOTE | 2019-02-18 18:25 | Surgery Progress Note ---
Surgery Progress Note Subjective Additional Comments glucose improved. exam stable. itching in groin area. Objective Last 24 Hour Vital Signs Date Time Temp Pulse Resp B/P (MAP) Pulse Ox O2 Delivery O2 Flow Rate FiO2 02/18/19 16:00 98.1 63 20 129/87 (101) 100 02/18/19 11:55 98.2 67 20 122/74 (90) 100 02/18/19 09:00 Room Air 02/18/19 07:30 97.9 64 19 120/77 (91) 100 02/18/19 04:00 98.1 63 18 120/75 (90) 100 02/18/19 00:00 98.1 66 18 125/85 (98) 99 02/17/19 21:54 67 18 139/90 (106) 02/17/19 21:00 Room Air 02/17/19 20:00 98.1 73 18 129/99 (109) 99 I&O Intake and Output 02/17/19 02/18/19 19:00 07:00 Intake Total 2135 ml 1175 ml Balance 2135 ml 1175 ml Intake Oral 400 ml 300 ml IV Total 1735 ml 875 ml # Voids 3 1 Dressing: dry Wound: clean Cardiovascular: RSR Respiratory: clear Abdomen: soft, flat, non-tender, present bowel sounds Extremities: no tenderness, no cyanosis Laboratory Tests Test 02/18/19 05:38 White Blood Count 6.6 K/UL (4.8-10.8) Red Blood Count 3.84 M/UL (4.70-6.10) L Hemoglobin 12.0 G/DL (14.2-18.0) L Hematocrit 34.2 % (42.0-52.0) L Mean Corpuscular Volume 89 FL (80-99) Mean Corpuscular Hemoglobin 31.3 PG (27.0-31.0) H Mean Corpuscular Hemoglobin Concent 35.2 G/DL (32.0-36.0) Red Cell Distribution Width 11.5 % (11.6-14.8) L Platelet Count 195 K/UL (150-450) Mean Platelet Volume 8.0 FL (6.5-10.1) Neutrophils (%) (Auto) 45.9 % (45.0-75.0) Lymphocytes (%) (Auto) 43.4 % (20.0-45.0) Monocytes (%) (Auto) 6.9 % (1.0-10.0) Eosinophils (%) (Auto) 2.2 % (0.0-3.0) Basophils (%) (Auto) 1.7 % (0.0-2.0) Sodium Level 137 MMOL/L (136-145) # Potassium Level 3.3 MMOL/L (3.5-5.1) L Chloride Level 101 MMOL/L (98-107) Carbon Dioxide Level 28 MMOL/L (21-32) Anion Gap 8 mmol/L (5-15) Blood Urea Nitrogen 12 mg/dL (7-18) Creatinine 0.9 MG/DL (0.55-1.30) Estimat Glomerular Filtration Rate > 60 mL/min (>60) Glucose Level 203 MG/DL (74-106) #H Hemoglobin A1c 14.0 % (4.3-6.0) H Calcium Level 8.5 MG/DL (8.5-10.1) Phosphorus Level 3.4 MG/DL (2.5-4.9) Magnesium Level 1.8 MG/DL (1.8-2.4) Plan Problems: (1) Hidradenitis suppurativa (2) Cellulitis Assessment & Plan: This is a 43-year-old male with new onset uncontrolled diabetes, left flank pain mainly at the superior iliac crest, groin cellulitis. Patient identified on examination to have hidradenitis in the groin region with multiple wounds some active some chronic. No acute surgical intervention necessary okay for diet DM control IV abx AM labs dressings to groin abscess prn but mainly cellulitis okay to shower will follow with recs. (3) Diabetes Dallin Plaza February 18, 2019 18:25
--- NOTE | 2019-02-18 19:25 | NUR ---
HAND-OFF: Report given to Samantha SHELTON.
--- NOTE | 2019-02-18 19:30 | NUR ---
NURSE NOTES: Patient received in bed, aaox4, IV site intact and patent. Call light within reach. Will continue to monitor.
[2019-02-18 20:00] VITALS: BP 134/94
[2019-02-19 00:46] VITALS: BP 130/81
[2019-02-19] MEDS: Vancomycin 1.5gm Premix q24h IVPB SCH ×3 (00:53→23:11)
[2019-02-19] MEDS: Morphine Sulfate 2mg/ml Inj(IV/IM USE ONLY) IVP PRN ×4 (00:57→20:43)
[2019-02-19 04:00] VITALS: BP 125/83
[2019-02-19] MEDS: Piperacillin/Tazobactam 3.375 GM in NS 110 ML IVPB SCH ×3 (04:55→21:31)
[2019-02-19] MEDS: NovoLOG Insulin Flexpen SUBQ SCH ×4 (06:20→20:49)
[2019-02-19 06:31] LABS: BASOPHILS % (AUTO) 1.7 % (0.0-2.0); EOSINOPHILS % (AUTO) 2.7 % (0.0-3.0); HEMATOCRIT 36.7 % (42.0-52.0); HEMOGLOBIN 12.5 G/DL (14.2-18.0); LYMPHOCYTES % (AUTO) 39.6 % (20.0-45.0); MEAN CORPUSCULAR VOLUME 91 FL (80-99); PLATELET COUNT 212 K/UL (150-450); RED BLOOD COUNT 4.04 M/UL (4.70-6.10); RED CELL DISTRIBUTION WIDTH 12.1 % (11.6-14.8); WHITE BLOOD COUNT 6.3 K/UL (4.8-10.8)
[2019-02-19 06:49] LABS: ANION GAP 8 mmol/L (5-15); BLOOD UREA NITROGEN 10 mg/dL (7-18); CALCIUM 8.9 MG/DL (8.5-10.1); CARBON DIOXIDE 28 MMOL/L (21-32); CHLORIDE 100 MMOL/L (98-107); CREATININE 0.9 MG/DL (0.55-1.30); POTASSIUM 3.5 MMOL/L (3.5-5.1); SODIUM 136 MMOL/L (136-145)
--- NOTE | 2019-02-19 07:27 | NUR ---
NURSE NOTES: Pt alert and orientated able to verbalize known needs. Denies pain at this time. Call light is in reach.
--- NOTE | 2019-02-19 07:43 | NUR ---
HAND-OFF: Report given to Neeta SHELTON.
[2019-02-19 08:00] VITALS: BP 142/88
--- NOTE | 2019-02-19 08:34 | General Progress Note ---
Assessment/Plan Assessment/Plan: New Onset Diabetes Groin Cellulitis- Hyadenitis Suppurativa Hyponatremia PLAN convert to po dc planning local care no surgery planned impression, plan, and exam edited and reviewed in detail care discussed with RN Subjective Allergies: Coded Allergies: No Known Allergies (Unverified , 02/17/19) Subjective care noted and reviewed Objective Last 24 Hour Vital Signs Date Time Temp Pulse Resp B/P (MAP) Pulse Ox O2 Delivery O2 Flow Rate FiO2 02/19/19 06:51 98.2 02/19/19 04:00 98.2 68 20 125/83 (97) 99 02/19/19 00:46 98.2 63 20 130/81 (97) 97 02/18/19 21:17 Room Air 02/18/19 20:00 98.0 72 20 134/94 (107) 98 02/18/19 16:00 98.1 63 20 129/87 (101) 100 02/18/19 11:55 98.2 67 20 122/74 (90) 100 02/18/19 09:00 Room Air Intake and Output 02/18/19 02/19/19 19:00 07:00 Intake Total 1671 ml 1040.0 ml Balance 1671 ml 1040.0 ml Intake Oral 1421 ml 600 ml IV Total 250 ml 440.0 ml # Voids 4 4 Laboratory Tests 02/18/19 21:50: Vancomycin Level Trough 9.9 02/19/19 05:42: White Blood Count 6.3, Red Blood Count 4.04L, Hemoglobin 12.5L, Hematocrit 36.7L , Mean Corpuscular Volume 91, Mean Corpuscular Hemoglobin 30.8, Mean Corpuscular Hemoglobin Concent 34.0, Red Cell Distribution Width 12.1, Platelet Count 212, Mean Platelet Volume 7.8, Neutrophils (%) (Auto) 50.0, Lymphocytes (% ) (Auto) 39.6, Monocytes (%) (Auto) 6.0, Eosinophils (%) (Auto) 2.7, Basophils ( %) (Auto) 1.7, Sodium Level 136, Potassium Level 3.5, Chloride Level 100, Carbon Dioxide Level 28, Anion Gap 8, Blood Urea Nitrogen 10, Creatinine 0.9, Estimat Glomerular Filtration Rate > 60, Glucose Level 231H, Calcium Level 8.9, Phosphorus Level 4.0, Magnesium Level 1.9 Height (Feet): 6 Height (Inches): 2.00 Weight (Pounds): 213 Objective WDWN NAD clear breath sounds bilaterally without rhonchi or wheeze [id number] without MRG NABS nontender no HSM no CCE nonfocal noted groin cellulitis Kahlil Brady MD February 19, 2019 08:34
--- NOTE | 2019-02-19 08:44 | NUR ---
CASE MANAGEMENT:REVIEW 02/19/19 SI: NEW ONSET DIABETES. HYPONATREMIA GROIN CELLULITIS 98.2 68 20 125/83 99% ON RA GLUCOSE+231 IS: IV VANCOMYCIN Q12 IV ZOSYN Q8HRS HEPARIN SQ Q12 IV MORPHINE Q3HRS PRN SS INSULIN AC+HS LEVEMIR SQ Q12 : MED/SURG STATUS DCP: FROM HOME
[2019-02-19] MEDS: Heparin 5000 units/ml inj SUBQ SCH ×2 (09:41→20:37)
[2019-02-19] MEDS: Levemir Flexpen SUBQ SCH ×2 (11:58→20:50)
[2019-02-19 12:00] VITALS: BP 127/75
[2019-02-19 16:00] VITALS: BP 117/49
--- NOTE | 2019-02-19 16:07 | Surgery Progress Note ---
Surgery Progress Note Subjective Symptoms: passing flatus Additional Comments states he feels better labs improved exam stable pain resolved. no n/v/f/c. Objective Last 24 Hour Vital Signs Date Time Temp Pulse Resp B/P (MAP) Pulse Ox O2 Delivery O2 Flow Rate FiO2 02/19/19 12:00 97.6 78 16 127/75 (92) 98 02/19/19 09:00 Room Air 02/19/19 08:00 97.8 72 18 142/88 (106) 100 02/19/19 06:51 98.2 02/19/19 04:00 98.2 68 20 125/83 (97) 99 02/19/19 00:46 98.2 63 20 130/81 (97) 97 02/18/19 21:17 Room Air 02/18/19 20:00 98.0 72 20 134/94 (107) 98 I&O Intake and Output 02/18/19 02/19/19 19:00 07:00 Intake Total 1671 ml 1040.0 ml Balance 1671 ml 1040.0 ml Intake Oral 1421 ml 600 ml IV Total 250 ml 440.0 ml # Voids 4 4 Dressing: saturated Wound: clean Drains: none Cardiovascular: RSR Respiratory: clear Abdomen: soft, present bowel sounds, non-distended Extremities: no tenderness, no cyanosis Laboratory Tests Test 02/18/19 21:50 02/19/19 05:42 Vancomycin Level Trough 9.9 ug/mL (5.0-12.0) White Blood Count 6.3 K/UL (4.8-10.8) Red Blood Count 4.04 M/UL (4.70-6.10) L Hemoglobin 12.5 G/DL (14.2-18.0) L Hematocrit 36.7 % (42.0-52.0) L Mean Corpuscular Volume 91 FL (80-99) Mean Corpuscular Hemoglobin 30.8 PG (27.0-31.0) Mean Corpuscular Hemoglobin Concent 34.0 G/DL (32.0-36.0) Red Cell Distribution Width 12.1 % (11.6-14.8) Platelet Count 212 K/UL (150-450) Mean Platelet Volume 7.8 FL (6.5-10.1) Neutrophils (%) (Auto) 50.0 % (45.0-75.0) Lymphocytes (%) (Auto) 39.6 % (20.0-45.0) Monocytes (%) (Auto) 6.0 % (1.0-10.0) Eosinophils (%) (Auto) 2.7 % (0.0-3.0) Basophils (%) (Auto) 1.7 % (0.0-2.0) Sodium Level 136 MMOL/L (136-145) Potassium Level 3.5 MMOL/L (3.5-5.1) Chloride Level 100 MMOL/L (98-107) Carbon Dioxide Level 28 MMOL/L (21-32) Anion Gap 8 mmol/L (5-15) Blood Urea Nitrogen 10 mg/dL (7-18) Creatinine 0.9 MG/DL (0.55-1.30) Estimat Glomerular Filtration Rate > 60 mL/min (>60) Glucose Level 231 MG/DL (74-106) H Calcium Level 8.9 MG/DL (8.5-10.1) Phosphorus Level 4.0 MG/DL (2.5-4.9) Magnesium Level 1.9 MG/DL (1.8-2.4) Plan Problems: (1) Hidradenitis suppurativa (2) Cellulitis Assessment & Plan: This is a 43-year-old male with new onset uncontrolled diabetes, left flank pain mainly at the superior iliac crest, groin cellulitis. Patient identified on examination to have hidradenitis in the groin region with multiple wounds some active some chronic. No acute surgical intervention necessary okay for diet DM control IV abx AM labs dressings to groin abscess prn but mainly cellulitis okay to shower okay to d/c from surgical standpoint outpatient follow up with PCP for DM outpatient f/u with surgery for chronic hydradenitis care will follow with recs. (3) Diabetes Dallin Plaza February 19, 2019 16:07
--- NOTE | 2019-02-19 18:00 | NUR ---
NURSE NOTES: Pt required pt teaching through out shift due to Blu Diet. Pt did not have a clear understanding of types of food to substitute, and the combinations of food to maintain sugar levels. Provided with the importance of foot care and not to walk in house without house shoes; " I wear socks" Informed that the impact on sugar levels , with wound healing. Pt accepted and verbalized understanding
--- NOTE | 2019-02-19 19:30 | NUR ---
NURSE NOTES: Received report from CAT Santacruz and rounds made. Received pt lying in bed, AOX4, denies pain at this time. IV L AC #20 patent and intact. IV fluid infusing as ordered, no distress noted. Bed in lowest position and locked, side rails up x 2, call light within reach. Will continue to monitor.
--- NOTE | 2019-02-19 19:54 | NUR ---
HAND-OFF: Report given to Reji SHELTON.
[2019-02-19 20:00] VITALS: BP 129/89
[2019-02-20] VITALS: BP 129/92
[2019-02-20] MEDS: Morphine Sulfate 2mg/ml Inj(IV/IM USE ONLY) IVP PRN ×2 (00:21→04:19)
--- NOTE | 2019-02-20 03:00 | Consultation ---
DATE OF CONSULTATION: 02/19/2019 INFECTIOUS DISEASE CONSULTATION CONSULTING PHYSICIAN: Navi Masters M.D. PRIMARY ATTENDING PHYSICIAN: Kahlil Brady M.D. REASON FOR CONSULTATION: Hydradenitis suppurativa and groin cellulitis. This consult is for coverage of Dr. Stacy. HISTORY OF PRESENT ILLNESS: This is a 43-year-old male admitted on February 17, 2019, complaining of pain in the left lower back, left posterior iliac crest region, and rash and ulceration in the inguinal area, that is present for 2 weeks. At the time of admission, the patient had elevation of blood sugar to about 600. The patient was not aware that he had diabetes mellitus before. PAST MEDICAL HISTORY: Insignificant. MEDICATIONS: Getting Levemir insulin, bacitracin, vancomycin, Zosyn, heparin, [place], morphine, insulin aspart, Tylenol, Zofran, and diphenhydramine. ALLERGIES: No known drug allergies. SOCIAL HISTORY: Single. He is ex-smoker and ex-drinker. He uses marijuana. REVIEW OF SYSTEMS: No fever. No chills. No nausea. No vomiting. No coughing. No chest pain. He has itching in the groin area. The patient's prepuce is also swollen and cannot be pushed back. PHYSICAL EXAMINATION: VITAL SIGNS: Temperature 97.6, pulse 78, and blood pressure 127/75. GENERAL APPEARANCE: No acute distress. Seems to be well developed. HEAD AND NECK: No oral lesion. HEART: S1 and S2, regular. LUNGS: Clear. ABDOMEN: Soft and nontender. EXTREMITIES: No edema. SKIN: He had ulceration in both groin area. He has skin swelling in prepuce area. LABORATORY AND DIAGNOSTIC DATA: WBC 6.3, hemoglobin 12.5, hematocrit 36.7, and platelets 212,000. Sodium 136, potassium 3.5, chloride 100, bicarbonate 20, BUN 10, creatinine 0.9, and glucose 231. Urine toxicology was positive for THC. Chest x-ray, no acute finding. IMPRESSION: Hidradenitis suppurativa. The patient has also groin cellulitis. He has new-onset diabetes mellitus with hyperglycemia. RECOMMENDATION: Continue vancomycin and Zosyn in the hospital. At the time of discharge, p.o. doxycycline. At the end of my exam, I thank Dr. Brady for involving me in the care of this patient. Navi Masters M.D. DR: ELYSIA JOB#: [id number] CC:
[2019-02-20 04:00] VITALS: BP 118/83
[2019-02-20] MEDS: Piperacillin/Tazobactam 3.375 GM in NS 110 ML IVPB SCH ×2 (05:51→14:01)
[2019-02-20] MEDS: NovoLOG Insulin Flexpen SUBQ SCH ×2 (05:55→11:45)
[2019-02-20 06:20] LABS: BASOPHILS % (AUTO) 1.5 % (0.0-2.0); EOSINOPHILS % (AUTO) 2.5 % (0.0-3.0); HEMATOCRIT 38.9 % (42.0-52.0); HEMOGLOBIN 13.2 G/DL (14.2-18.0); MEAN CORPUSCULAR VOLUME 91 FL (80-99); MONOCYTES % (AUTO) 7.3 % (1.0-10.0); NEUTROPHILS % (AUTO) 46.8 % (45.0-75.0); PLATELET COUNT 227 K/UL (150-450); RED BLOOD COUNT 4.29 M/UL (4.70-6.10); RED CELL DISTRIBUTION WIDTH 11.8 % (11.6-14.8); WHITE BLOOD COUNT 6.8 K/UL (4.8-10.8)
[2019-02-20 06:39] LABS: ANION GAP 9 mmol/L (5-15); BLOOD UREA NITROGEN 12 mg/dL (7-18); CALCIUM 9.2 MG/DL (8.5-10.1); CARBON DIOXIDE 29 MMOL/L (21-32); CHLORIDE 100 MMOL/L (98-107); PHOSPHORUS 5.2 MG/DL (2.5-4.9); POTASSIUM 3.3 MMOL/L (3.5-5.1); SODIUM 138 MMOL/L (136-145)
--- NOTE | 2019-02-20 07:25 | NUR ---
HAND-OFF: Report given to CAT Villalba. Pt in stable condition.
--- NOTE | 2019-02-20 07:39 | NUR ---
NURSE NOTES: RN received pt in stable condition, resting in bed. No acute distress or SOB. Labs: K 3.3, Mag 1.7. RN left message for Dr. Brady; awaiting call back. Evening BS 142; will continue to monitor.
[2019-02-20 08:00] VITALS: BP 119/74
[2019-02-20] MEDS: Heparin 5000 units/ml inj SUBQ SCH ×2 (08:56→09:00)
[2019-02-20] MEDS: Levemir Flexpen SUBQ SCH (08:56)
[2019-02-20] MEDS: Vancomycin 1.5gm Premix q24h IVPB SCH (11:00)
--- NOTE | 2019-02-20 11:00 | NUR ---
NURSE NOTES: RN received discharge order from Dr. Brady; waiting on clarification of discharge meds before d/c.
--- NOTE | 2019-02-20 11:09 | Infectious Diseases Prog Note ---
"Assessment/Plan Assessment/Plan antibiotics ; vancomycin iv, zosyn A 1. groin infection | hydradenitis suppuratica 2. diabetes mellitus P 1. continue iv vancomycin, zosyn 2. po doxycycline on discharge 6 more days 3. will follow up Subjective Constitutional: Denies: fever, chills Respiratory: Denies: shortness of breath, dry cough Gastrointestinal/Abdominal: Denies: nausea, vomiting, diarrhea Musculoskeletal: Reports: pain - in groin with itching Allergies: Coded Allergies: No Known Allergies (Unverified , 02/17/19) Objective Vital Signs Last 24 Hour Vital Signs Date Time Temp Pulse Resp B/P (MAP) Pulse Ox O2 Delivery O2 Flow Rate FiO2 02/20/19 09:00 Room Air 02/20/19 08:00 98.3 72 20 119/74 (89) 97 02/20/19 04:00 98.1 75 19 118/83 (95) 100 02/20/19 00:00 98.0 71 19 129/92 (104) 100 02/19/19 21:00 Room Air 02/19/19 20:00 98.2 70 20 129/89 (102) 98 02/19/19 16:00 98.0 82 17 117/49 (71) 97 02/19/19 12:00 97.6 78 16 127/75 (92) 98 Height (Feet): 6 Height (Inches): 2.00 Weight (Pounds): 213 Respiratory/Chest: lungs clear Cardiovascular: normal rate, regular rhythm, no gallop/murmur Abdomen: soft, non tender Extremities: no edema Skin: rash - with drainage on chin and right groin Laboratory Tests Test 02/20/19 05:10 White Blood Count 6.8 K/UL (4.8-10.8) Red Blood Count 4.29 M/UL (4.70-6.10) L Hemoglobin 13.2 G/DL (14.2-18.0) L Hematocrit 38.9 % (42.0-52.0) L Mean Corpuscular Volume 91 FL (80-99) Mean Corpuscular Hemoglobin 30.8 PG (27.0-31.0) Mean Corpuscular Hemoglobin Concent 34.0 G/DL (32.0-36.0) Red Cell Distribution Width 11.8 % (11.6-14.8) Platelet Count 227 K/UL (150-450) Mean Platelet Volume 8.3 FL (6.5-10.1) Neutrophils (%) (Auto) 46.8 % (45.0-75.0) Lymphocytes (%) (Auto) 42.0 % (20.0-45.0) Monocytes (%) (Auto) 7.3 % (1.0-10.0) Eosinophils (%) (Auto) 2.5 % (0.0-3.0) Basophils (%) (Auto) 1.5 % (0.0-2.0) Sodium Level 138 MMOL/L (136-145) Potassium Level 3.3 MMOL/L (3.5-5.1) L Chloride Level 100 MMOL/L (98-107) Carbon Dioxide Level 29 MMOL/L (21-32) Anion Gap 9 mmol/L (5-15) Blood Urea Nitrogen 12 mg/dL (7-18) Creatinine 1.0 MG/DL (0.55-1.30) Estimat Glomerular Filtration Rate > 60 mL/min (>60) Glucose Level 137 MG/DL (74-106) H Calcium Level 9.2 MG/DL (8.5-10.1) Phosphorus Level 5.2 MG/DL (2.5-4.9) H Magnesium Level 1.7 MG/DL (1.8-2.4) L Current Medications Medications (Trade) Dose Ordered Sig/Homa Route PRN Reason Start Time Stop Time Status Last Admin Dose Admin Acetaminophen (Tylenol) 650 mg Q4H PRN ORAL Mild Pain/Temp > 100.5 02/17/19 15:15 03/19/19 15:14 02/17/19 22:37 Acetaminophen/ Hydrocodone Bitart ([place] 5/325) 1 tab Q6H PRN ORAL Moderate Pain (Pain Scale 4-6) 02/17/19 17:45 02/24/19 17:44 02/17/19 18:52 Bacitracin (Bacitracin) 1 applic DAILYPRN PRN TOPIC Itching 02/18/19 17:15 03/20/19 17:14 Dextrose (Dextrose 50%) 25 ml Q30M PRN IV Hypoglycemia 02/17/19 15:15 03/19/19 15:14 Dextrose (Dextrose 50%) 50 ml Q30M PRN IV Hypoglycemia 02/17/19 15:15 03/19/19 15:14 Diphenhydramine HCl (Benadryl) 25 mg Q6H PRN ORAL Itching 02/17/19 15:15 03/19/19 15:14 Heparin Sodium (Porcine) (Heparin 5000 units/ml) 5,000 units EVERY 12 HOURS SUBQ 02/17/19 21:00 03/19/19 20:59 02/19/19 20:37 Insulin Aspart (NovoLOG) BEFORE MEALS AND HS SUBQ 02/17/19 16:30 03/19/19 16:29 02/20/19 05:55 Insulin Detemir (Levemir) 25 units Q12HR SUBQ 02/19/19 10:30 03/21/19 10:29 02/20/19 08:56 Iopamidol (Isovue-300 100ml) 100 ml NOW PRN INJ Radiology Procedure 02/17/19 11:30 Morphine Sulfate (Morphine Sulfate) 2 mg Q3H PRN IVP Severe Pain (Pain Scale 7-10) 02/17/19 17:45 02/24/19 17:44 02/20/19 04:19 Ondansetron HCl (Zofran) 4 mg Q8H PRN IVP Nausea & Vomiting 02/17/19 15:15 03/19/19 15:14 Piperacillin Sod/ Tazobactam Sod 3.375 gm/Sodium Chloride 110 ml @ 27.5 mls/hr Q8HR IVPB 02/17/19 22:00 02/24/19 21:59 02/20/19 05:51 Vancomycin HCl (Vanco rx to dose) 1 ea DAILY PRN MISC Per rx protocol 02/17/19 15:15 03/19/19 15:14 Vancomycin HCl/ Dextrose 275 ml @ 137.5 mls/ hr Q12H IVPB 02/17/19 23:00 02/22/19 22:59 02/19/19 23:11 Alexa Stacy MD February 20, 2019 11:09"
[2019-02-20 12:00] VITALS: BP 117/80
[2019-02-20] MEDS ORDERED: DOXYCYCLINE HY100 M6 PO (13:19)
--- NOTE | 2019-02-20 14:27 | General Progress Note ---
Assessment/Plan Assessment/Plan: New Onset Diabetes Groin Cellulitis- Hyadenitis Suppurativa Hyponatremia PLAN po doxy per ID cleared by surgery will call in diabetic meds dc planning local care no surgery planned impression, plan, and exam edited and reviewed in detail care discussed with RN Subjective Allergies: Coded Allergies: No Known Allergies (Unverified , 02/17/19) Subjective care noted and reviewed ready for discharge Objective Last 24 Hour Vital Signs Date Time Temp Pulse Resp B/P (MAP) Pulse Ox O2 Delivery O2 Flow Rate FiO2 02/20/19 12:00 98.3 68 20 117/80 (92) 98 02/20/19 09:00 Room Air 02/20/19 08:00 98.3 72 20 119/74 (89) 97 02/20/19 04:00 98.1 75 19 118/83 (95) 100 02/20/19 00:00 98.0 71 19 129/92 (104) 100 02/19/19 21:00 Room Air 02/19/19 20:00 98.2 70 20 129/89 (102) 98 02/19/19 16:00 98.0 82 17 117/49 (71) 97 Intake and Output 02/19/19 02/20/19 19:00 07:00 Intake Total 357.5 ml 560.0 ml Balance 357.5 ml 560.0 ml Intake Oral 120 ml IV Total 357.5 ml 440.0 ml # Voids 2 Laboratory Tests 02/20/19 05:10: White Blood Count 6.8, Red Blood Count 4.29L, Hemoglobin 13.2L, Hematocrit 38.9L , Mean Corpuscular Volume 91, Mean Corpuscular Hemoglobin 30.8, Mean Corpuscular Hemoglobin Concent 34.0, Red Cell Distribution Width 11.8, Platelet Count 227, Mean Platelet Volume 8.3, Neutrophils (%) (Auto) 46.8, Lymphocytes (% ) (Auto) 42.0, Monocytes (%) (Auto) 7.3, Eosinophils (%) (Auto) 2.5, Basophils ( %) (Auto) 1.5, Sodium Level 138, Potassium Level 3.3L, Chloride Level 100, Carbon Dioxide Level 29, Anion Gap 9, Blood Urea Nitrogen 12, Creatinine 1.0, Estimat Glomerular Filtration Rate > 60, Glucose Level 137H, Calcium Level 9.2, Phosphorus Level 5.2H, Magnesium Level 1.7L Height (Feet): 6 Height (Inches): 2.00 Weight (Pounds): 213 Objective WDWN NAD clear breath sounds bilaterally without rhonchi or wheeze [id number] without MRG NABS nontender no HSM no CCE nonfocal noted groin cellulitis Kahlil Brady MD February 20, 2019 14:27
--- NOTE | 2019-02-20 15:47 | NUR ---
NURSE NOTES: Pt discharged in stable condition. IV and arm band removed. Pt belongings accounted for with pt. RN verified pt's prescription at pharmacy before discharge and provided pt with discharge packet with diabetes education topics. RN explained how medications work and reviewed with pt diabetic diet. RN emphasized eating low glycemic carbohydrates vs. high glycemic carbohydrates. RN gave examples of foods to avoid: white bread, white rice, white potatoes, pasta, muffins, cake, banannas. RN advised on eating lean meat's and vegetables, not fried, and educated pt on low glycemic carbohydrates, e.g., brown rice, quinoe sweet potatoes, which are ok to eat in moderation. RN advised pt to monitor blood sugar regularly and f/u with PCP. Pt verbalized understanding and expressed gratitude for care.
--- NOTE | 2019-02-20 15:47 | Surgery Progress Note ---
Surgery Progress Note Subjective Additional Comments no acute events. doing well. comfortable. stable. labs okay. wants to go home Objective Last 24 Hour Vital Signs Date Time Temp Pulse Resp B/P (MAP) Pulse Ox O2 Delivery O2 Flow Rate FiO2 02/20/19 12:00 98.3 68 20 117/80 (92) 98 02/20/19 09:00 Room Air 02/20/19 08:00 98.3 72 20 119/74 (89) 97 02/20/19 04:00 98.1 75 19 118/83 (95) 100 02/20/19 00:00 98.0 71 19 129/92 (104) 100 02/19/19 21:00 Room Air 02/19/19 20:00 98.2 70 20 129/89 (102) 98 02/19/19 16:00 98.0 82 17 117/49 (71) 97 I&O Intake and Output 02/19/19 02/20/19 19:00 07:00 Intake Total 357.5 ml 560.0 ml Balance 357.5 ml 560.0 ml Intake Oral 120 ml IV Total 357.5 ml 440.0 ml # Voids 2 Dressing: dry Wound: clean Cardiovascular: RSR Respiratory: clear Abdomen: soft, flat, non-tender, present bowel sounds, non-distended Extremities: no tenderness, no cyanosis Laboratory Tests Test 02/20/19 05:10 White Blood Count 6.8 K/UL (4.8-10.8) Red Blood Count 4.29 M/UL (4.70-6.10) L Hemoglobin 13.2 G/DL (14.2-18.0) L Hematocrit 38.9 % (42.0-52.0) L Mean Corpuscular Volume 91 FL (80-99) Mean Corpuscular Hemoglobin 30.8 PG (27.0-31.0) Mean Corpuscular Hemoglobin Concent 34.0 G/DL (32.0-36.0) Red Cell Distribution Width 11.8 % (11.6-14.8) Platelet Count 227 K/UL (150-450) Mean Platelet Volume 8.3 FL (6.5-10.1) Neutrophils (%) (Auto) 46.8 % (45.0-75.0) Lymphocytes (%) (Auto) 42.0 % (20.0-45.0) Monocytes (%) (Auto) 7.3 % (1.0-10.0) Eosinophils (%) (Auto) 2.5 % (0.0-3.0) Basophils (%) (Auto) 1.5 % (0.0-2.0) Sodium Level 138 MMOL/L (136-145) Potassium Level 3.3 MMOL/L (3.5-5.1) L Chloride Level 100 MMOL/L (98-107) Carbon Dioxide Level 29 MMOL/L (21-32) Anion Gap 9 mmol/L (5-15) Blood Urea Nitrogen 12 mg/dL (7-18) Creatinine 1.0 MG/DL (0.55-1.30) Estimat Glomerular Filtration Rate > 60 mL/min (>60) Glucose Level 137 MG/DL (74-106) H Calcium Level 9.2 MG/DL (8.5-10.1) Phosphorus Level 5.2 MG/DL (2.5-4.9) H Magnesium Level 1.7 MG/DL (1.8-2.4) L Plan Problems: (1) Hidradenitis suppurativa (2) Cellulitis Assessment & Plan: This is a 43-year-old male with new onset uncontrolled diabetes, left flank pain mainly at the superior iliac crest, groin cellulitis. Patient identified on examination to have hidradenitis in the groin region with multiple wounds some active some chronic. No acute surgical intervention necessary okay for diet DM control IV abx AM labs dressings to groin abscess prn but mainly cellulitis okay to shower okay to d/c from surgical standpoint outpatient follow up with PCP for DM outpatient f/u with surgery for chronic hydradenitis care will follow with recs. (3) Diabetes Dallin Plaza February 20, 2019 15:47
--- NOTE | 2019-02-21 12:47 | Discharge Summary ---
Discharge Summary Discharge Summary _ DATE OF ADMISSION: 02/17/2019 DATE OF DISCHARGE: 02/20/2019 DISCHARGED BY: Dr. Brady REASON FOR ADMISSION: [] 43 years old male with no significant past medical history, presented with complaints of left lower back pain. Initially reported to the flank pain pump however patient clearly pointed to left posterior superior iliac crest region for the pain. Pain was intermittent for the past 2 weeks. Patient denies chest pain or shortness of breath patient denied history of trauma or injury to the area. Patient also reported rash in the inguinal area. He reported increased nausea vomiting worsened with the pain. Upon evaluation vital signs are stable. Laboratory work-up revealed no leukocytosis stable hemoglobin hematocrit. Urinalysis revealed no evidence of UTI +4 glucose plus for ketones. Sodium 126 glucose 606. Stable potassium. Anion gap and CO2 within normal range. BUN 15 creatinine 1.1 urine toxicology screen was positive for marijuana. EKG reveals sinus rhythm no acute ischemic changes CT of the abdomen and pelvis revealed questioning changes in pancreatic region no abscess. Patient subsequently admitted for further management with diagnosis of new onset of diabetes, cellulitis of groin, hyponatremia CONSULTANTS: surgery Dr. Plaza [facility] COURSE: Patient admitted and started on empiric antibiotic. Patient started on the IV hydration with close monitoring of volumes and cardiorenal parameters. Electrolytes , magnesium and potassium, corrected. Blood sugar was managed with long-acting Lantus and sliding scale of insulin. Diabetic diet provided. Patient was provided with basic diabetic teaching. Hemoglobin A1c 14. Patient will need close follow-up with a primary care provider for optimization of anti-glycemic regimen and further diabetic teaching. Antiemetic provided as needed . DVT prophylaxis provided. Pain management addressed. Surgeon seen the patient for groin cellulitis. Patient had chronic hydradenitis suppurativa. Per surgeon, no acute surgical intervention was necessarily. Surgeon recommended conservative management with IV antibiotics. Dressing changes for groin abscess provided as needed, but mainly was cellulitis. Surgeon cleared patient to shower and cleared for discharge from surgical standpoint. Surgeon recommended outpatient follow-up with the surgery for chronic hidradenitis care. Blood sugar stabilized. Sodium stable-138. No nausea or vomiting. Patient was able to tolerate diet. Patient clinically stabilized and was ready for discharge home on oral antibiotics to complete the course. FINAL DIAGNOSES: New onset of diabetes Left groin cellulitis Hidradenitis suppurativa Acute hyponatremia Electrolyte imbalances hypokalemia hypomagnesemia DISCHARGE MEDICATIONS: See Medication Reconciliation list. DISCHARGE INSTRUCTIONS: Patient was discharged home . Follow up with primary care provider in one week. I have been assigned to dictate discharge summary for this account. I was not involved in the patient's management. Maria Luisa Simmons NP February 21, 2019 12:47
== END 2019-02-20 15:45 | disposition home or self-care (01) | DRG 603 ==
LOC: EMR 10:50 → 3E 12:30 → EDBEDREQ 12:36
DX: L03.314 Cellulitis of groin (principal); E11.65 Type 2 diabetes mellitus with hyperglycemia; L73.2 Hidradenitis suppurativa; E87.6 Hypokalemia; E83.42 Hypomagnesemia; Z87.891 Personal history of nicotine dependence
CPT/HCPCS: 36415; 71045; 74177; 80048; 80202; 80307; 81003; 82962; 83036; 83735; 84100; 85025; 93005; 96361; 96365; 96375; 99285; J1815; J8499; S5561